=== PATIENT | male | born 1980 | race Caucasian/White ===

== ENCOUNTER 2018-11-09 08:58 | Outpatient (CLI) | payer OTHER ==
--- NOTE | 2018-11-09 09:51 | RAD ---
EXAM: CHEST TWO VIEWS: History: Renal cell carcinoma. Follow up. Comparison: 02-24-17 FINDINGS: Heart size is normal. The lungs are clear. No confluent pneumonia, overt edema or pleural effusion. IMPRESSION: Unremarkable chest one view. No evidence for metastasis. POS: C
--- NOTE | 2018-11-09 12:52 | CT ---
CT ABDOMEN WITH AND WITHOUT IV CONTRAST CT PELVIS WITH AND WITHOUT IV CONTRAST: DATE: 11/09/2018. HISTORY: Left renal cell carcinoma with a history of prior surgery. COMPARISON: 10/21/2017. FINDINGS: There is a small nodular and slightly linear pleural-based density at the anterior aspect of the righ t middle lobe which measures approximately 4 mm. Lung bases are otherwise clear. As noted on the prior examination, there are postsurgical changes involving the posterior aspect mid portion left kidney similar to the study on 10/21/2017. No enhancing mass is appreciated in this region. There is a low-density area present in the region o f postsurgical changes likely related to an area of mild cortical scarring which is also stable from prior exam. The kidneys otherwise enhancement symmetrically bilaterally and no right renal mass or r enal calculus is seen and there is no hydronephrosis. The liver, spleen, pancreas, bilateral adrenal glands, and urinary bladder demonstrate a normal CT ap pearance. Again noted is mild eccentric atherosclerotic plaque seen within the infrarenal abdominal aorta. There is no evidence of lymphadenopathy. No lytic or sclerotic osseous lesions are identified. IMPRESSION: 1. Stable postsurgical changes involving the left kidney without residual or recurrent neoplasm appr eciated on today's exam. 2. Tiny nodular density within the anterior aspect of the right middle lobe which is difficult to ch aracterize and very small in size but was probably represent on the prior exam. No additional pulmon leia nodule is seen in either lung zone, and there are definite findings to suggest metastatic disease . Continued followup of the nodular density right middle lobe is recommended in 4 months. POS: [facility]
== END 2018-11-09 08:59 | disposition home or self-care (01) ==
LOC: NAV CT 08:58
PROVIDERS: ATTEND Urology
DX: C64.2 Malignant neoplasm of left kidney, except renal pelvis (principal); R91.8 Other nonspecific abnormal finding of lung field
CPT/HCPCS: 71046; 74178